=== PATIENT | male | born 1935 | race Caucasian/White ===

== ENCOUNTER 2017-09-17 14:34 | Emergency (ER) | payer OTHER ==
[~2017-09-17] VITALS: Ht 177.8 cm; Wt 73.5 kg
[2017-09-17 15:20] LABS: ABSOLUTE BASOPHIL COUNT 0 /CUMM (0.0-0.2); ABSOLUTE EOSINOPHIL COUNT 0.1 /CUMM (0.0-0.7); ABSOLUTE LYMPH COUNT 1.6 /CUMM (1.2-3.4); ABSOLUTE MONOCYTE COUNT 0.6 /CUMM (0.10-0.60); BASOPHIL % 0.2 % (0.0-2.0); GRANULOCYTE % 63.7 % (42.2-75.2); HEMATOCRIT 46.4 % (42-52); MEAN CORPUSCULAR HGB 31.6 PG (27.0-31.0); MEAN CORPUSCULAR HGB CONC 34.5 G/DL (33.0-37.0); MEAN CORPUSCULAR VOLUME 91.6 FL (80.0-94.0); MEAN PLATELET VOLUME 9.3 FL (7.4-10.4); PLATELET COUNT 133 /CUMM (130-400); RBC DISTRIBUTION WIDTH 14.6 % (11.5-14.5); RED BLOOD CELL CT 5.06 /CUMM (4.70-6.10); WHITE BLOOD CELL COUNT 6.3 /CUMM (4.8-10.8)
--- NOTE | 2017-09-17 15:34 | CT SCAN REPORT ---
EXAMINATION: CT ABDOMEN AND PELVIS WITHOUT CONTRAST CLINICAL INFORMATION: Left lower back pain. Abdominal pain. COMPARISON: None TECHNIQUE: Multidetector volumetric imaging was performed from the superior aspect of the liver through the pubic symphysis. Sagittal and coronal reformatted images were obtained on the technologist's workstation. DLP: 327.38 mGy-cm FINDINGS: LUNG BASES: There is no acute infiltrate. There are multiple small calcified granuloma at the right lung base. There is linear scarring at the middle lobe and lingula. LIVER, GALLBLADDER, AND BILIARY TREE: There is micronodularity of the surface of liver consistent with underlying cirrhosis. The right lobe of liver is small measuring 12 cm superior inferior. There is no focal liver lesion. There is no intrahepatic bile duct dilatation. The gallbladder is unremarkable with no evidence of radiopaque gallstones, gallbladder wall thickening, or obvious pericholecystic inflammatory changes. PANCREAS: Unremarkable. SPLEEN: Unremarkable. The spleen measures 10 cm AP. ADRENAL GLANDS: Unremarkable. BLADDER/KIDNEYS AND URETERS: There is mild dilatation of the calyces and left renal pelvis to the ureter pelvic junction. There is no hydroureter however. There is a 2 mm stone at the left bladder trigone which is passed or is passing through the left UVJ. Axial image 547 (3). There is no additional stone in the left kidney. The right kidney and ureter are normal with no calculus or hydronephrosis. GASTROINTESTINAL TRACT: Moderate volume of stool throughout colon. There is no acute abnormality of the bowel. No bowel obstruction. No bowel wall thickening or edema. There are a few scattered diverticula of the colon, but no diverticulitis. The appendix is normal. The small bowel loops are normal. There is a small hiatal hernia. MESENTERY: No ascites. No inflammation. No free air. ABDOMINAL WALL: No significant hernia is appreciated. LYMPH NODES: Normal. VASCULAR: There is atherosclerotic vascular calcifications of the abdominal and pelvic vasculature. There is heavy vascular calcification of the SMA and the splenic artery. There is calcification at the origin of the right and left renal artery. There are scattered vascular calcifications of the aorta and iliac arteries. PELVIC VISCERA: Prostate measures 5 cm transverse. OSSEOUS STRUCTURES: Degenerative spondylosis with multilevel disc height narrowing, vertebral endplate spurs, vacuum disc phenomenon and facet joint arthrosis. IMPRESSION: 1. Moderate hydronephrosis of the left kidney. There is a 2 mm stone at the left bladder trigone which is passing or has passed through the left UVJ. 2. Micronodular contour of liver consistent with cirrhosis.
--- NOTE | 2017-09-17 16:23 | ED GI/GU/ABDOMINAL COMPLAINT ---
History of Present Illness General Chief Complaint: Low Back Pain/Injury Stated Complaint: LOWER BACK PAIN Source: patient, family Exam Limitations: no limitations Vital Signs & Intake/Output Vital Signs & Intake/Output Vital Signs Date Time Temp Pulse Resp B/P B/P Pulse O2 O2 Flow FiO2 Mean Ox Delivery Rate 09/17 1643 96.8 696 18 145/96 696 Room Air 09/17 1641 96 Room Air Room Air 09/17 1443 97.4 64 16 196/83 97 Room Air Allergies Coded Allergies: aspirin (Intermediate, RASH 09/17/17) Reconcile Medications Ondansetron (Zofran Odt) 4 MG TAB.RAPDIS 1 TAB SL TID PRN NAUSEA Triage Note: 82M WITH LEFT FLANK PAIN, DENIES RADIATION. WORSE WITH MOVMENT. STARTED AT MIDNIGHT AND IMPROVED WITH ALEVE AT 4AM. DENIES HEMATURIA OR BLOOD TO STOOL. -N/V, +GAS PAINS TO ABD Triage Nurses Notes Reviewed? yes Onset: Abrupt Duration: day(s): (1), better, gone now Timing: single episode today Quality/Severity: cramping Severity Numbers: 7 Location: left lower quadrant Radiation: back, groin Activities at Onset: none Prior Abdominal Problems: none Past Sexual History: Unobtainable at this time No Modifying Factors: none Modifying Factors: Worsens With: palpation. HPI: 82-year-old male history of cirrhosis presents for evaluation of left flank pain radiating into the left groin and left lower quadrant. This started abruptly around midnight last night. He states that he took some Aleve which did help. The pain did return several hours later and then has gone away again. There are no other associated symptoms. There is no trauma or triggering event no nausea vomiting hematuria chest pain or shortness of breath. No fevers. Currently he is completely asymptomatic. (Bertrand Kyle) Past History Travel History Traveled to [place] past 21 day No Medical History Any Pertinent Medical History? see below for history Cardiovascular: hypertension Surgical History Surgical History: non-contributory Psychosocial History What is your primary language Lao Tobacco Use: Never used Family History Hx Contributory? No (Bertrand Kyle) Review of Systems Review of Systems Constitutional: Reports: no symptoms. EENTM: Reports: no symptoms. Respiratory: Reports: no symptoms. Cardiovascular: Reports: no symptoms. GI: Reports: abdominal pain. Genitourinary: Reports: no symptoms. Musculoskeletal: Reports: see HPI, back pain. Skin: Reports: no symptoms. Neurological/Psychological: Reports: no symptoms. Hematologic/Endocrine: Reports: no symptoms. Immunologic/Allergic: Reports: no symptoms. All Other Systems: Reviewed and Negative (Bertrand Kyle) Physical Exam Physical Exam General Appearance: well developed/nourished, no apparent distress, alert, awake Head: atraumatic, normal appearance Eyes: Bilateral: normal appearance, PERRL, EOMI. Ears, Nose, Throat, Mouth: hearing grossly normal, moist mucous membrane Neck: normal inspection, supple, full range of motion Respiratory: normal breath sounds, chest non-tender, no respiratory distress, lungs clear Cardiovascular: regular rate/rhythm, normal peripheral pulses Peripheral Pulses: 2+ radial (R), 2+ radial (L) Gastrointestinal: normal bowel sounds, soft, non-tender, no organomegaly Back: normal inspection, normal range of motion, no vertebral tenderness Extremities: normal range of motion Neurologic/Psych: no motor/sensory deficits, awake, alert, oriented x 3, normal gait, normal mood/affect Skin: intact, normal color, warm/dry Core Measures ACS in differential dx? No Sepsis Present: No Sepsis Focused Exam Completed? No (Bertrand Kyle) Progress Differential Diagnosis: AAA, appendicitis, biliary colic, bowel obstruction, cholecystitis, diverticulitis, gastritis, hernia, ischemic bowel, inflamm bowel dis, prostatitis, peptic ulcer, pyelonephritis, SBO, ureterolithiasis, urinary retention, urethritis, UTI/pyelo Plan of Care: Orders Procedure Date/time Status URINALYSIS 09/17 144 Complete LIPASE 09/17 1442 Complete LACTIC ACID 09/17 144 Complete COMPREHENSIVE METABOLIC PANEL 09/17 144 Complete CBC WITHOUT DIFFERENTIAL 09/17 144 Complete Laboratory Tests 09/17/17 1742: Lactic Acid Cancelled 09/17/17 1520: Urine Color YEL, Urine Clarity CLEAR, Urine pH 6.0, Ur Specific [place] 1.015, Urine Protein NEG, Urine Ketones NEG, Urine Nitrite NEG, Urine Bilirubin NEG, Urine Urobilinogen 2.0 H, Ur Leukocyte Esterase NEG, Ur Microscopic SEDIMENT EXAMINED, Urine RBC 5-10 H, Urine WBC RARE, Ur Epithelial Cells RARE, Urine Hemoglobin SMALL H, Urine Glucose NEG 09/17/17 1508: Anion Gap 7, Estimated GFR > 60, BUN/Creatinine Ratio 15.6, Glucose 98, Lactic Acid 1.1, Calcium 9.1, Total Bilirubin 1.3, AST 103 H, ALT 163 H, Alkaline Phosphatase 507 H, Total Protein 8.4 H, Albumin 4.2, Globulin 4.2, Albumin/ Globulin Ratio 1.0 L, Lipase 101, CBC w Diff NO MAN DIFF REQ, RBC 5.06, MCV 91.6, MCH 31.6 H, MCHC 34.5, RDW 14.6 H, MPV 9.3, Gran % 63.7, Lymphocytes % 24.8, Monocytes % 9.3, Eosinophils % 2.0, Basophils % 0.2, Absolute Granulocytes 4.0, Absolute Lymphocytes 1.6, Absolute Monocytes 0.6, Absolute Eosinophils 0.1, Absolute Basophils 0 Patient is here for evaluation of left flank pain that started last night abruptly. The pain had been coming and going throughout the night. Currently he is completely asymptomatic and feels well. His vitals are stable. Blood work is remarkable for elevated liver function tests patient has a known history of cirrhosis. CT scan impression is as follows: Moderate hydronephrosis of the left kidney. There is a 2 mm stone at the left bladder trigone which is passing or has passed through the left UVJ. This finding correlates with the clinical picture. Urine is not showing any signs of infection. CT scan also shows evidence of cirrhosis which again is known to the patient. Reviewed all results of today's visit. Advised him to rest drink plenty of fluids Aleve as needed for pain. Make a follow-up appointment with the primary care doctor and provided urologist. Discussed return precautions case discussed with Dr. Sewell HE agrees. Diagnostic Imaging: Viewed by Me: CT Scan. Discussed w/RAD: CT Scan. Radiology Impression: PATIENT: JEREMIAH PINEDA PRESENT AGE: 82 PATIENT ACCOUNT NO: [id number] : 33 LOCATION: [facility] ORDERING PHYSICIAN: Rip CHAUDHARI SERVICE DATE: 09/17/17 EXAM TYPE: CAT - CT ABD & PELVIS W/O IV CONTRAS EXAMINATION: CT ABDOMEN AND PELVIS WITHOUT CONTRAST CLINICAL INFORMATION: Left lower back pain. Abdominal pain. COMPARISON: None TECHNIQUE: Multidetector volumetric imaging was performed from the superior aspect of the liver through the pubic symphysis. Sagittal and coronal reformatted images were obtained on the technologist's workstation. DLP: 327.38 mGy-cm FINDINGS: LUNG BASES: There is no acute infiltrate. There are multiple small calcified granuloma at the right lung base. There is linear scarring at the middle lobe and lingula. LIVER, GALLBLADDER, AND BILIARY TREE: There is micronodularity of the surface of liver consistent with underlying cirrhosis. The right lobe of liver is small measuring 12 cm superior inferior. There is no focal liver lesion. There is no intrahepatic bile duct dilatation. The gallbladder is unremarkable with no evidence of radiopaque gallstones, gallbladder wall thickening, or obvious pericholecystic inflammatory changes. PANCREAS: Unremarkable. SPLEEN: Unremarkable. The spleen measures 10 cm AP. ADRENAL GLANDS: Unremarkable. BLADDER/KIDNEYS AND URETERS: There is mild dilatation of the calyces and left renal pelvis to the ureter pelvic junction. There is no hydroureter however. There is a 2 mm stone at the left bladder trigone which is passed or is passing through the left UVJ. Axial image 547 (3). There is no additional stone in the left kidney. The right kidney and ureter are normal with no calculus or hydronephrosis. GASTROINTESTINAL TRACT: Moderate volume of stool throughout colon. There is no acute abnormality of the bowel. No bowel obstruction. No bowel wall thickening or edema. There are a few scattered diverticula of the colon, but no diverticulitis. The appendix is normal. The small bowel loops are normal. There is a small hiatal hernia. MESENTERY: No ascites. No inflammation. No free air. ABDOMINAL WALL: No significant hernia is appreciated. LYMPH NODES: Normal. VASCULAR: There is atherosclerotic vascular calcifications of the abdominal and pelvic vasculature. There is heavy vascular calcification of the SMA and the splenic artery. There is calcification at the origin of the right and left renal artery. There are scattered vascular calcifications of the aorta and iliac arteries. PELVIC VISCERA: Prostate measures 5 cm transverse. OSSEOUS STRUCTURES: Degenerative spondylosis with multilevel disc height narrowing, vertebral endplate spurs, vacuum disc phenomenon and facet joint arthrosis. IMPRESSION: 1. Moderate hydronephrosis of the left kidney. There is a 2 mm stone at the left bladder trigone which is passing or has passed through the left UVJ. 2. Micronodular contour of liver consistent with cirrhosis. DICTATED BY: Paco Price MD DATE/TIME DICTATED:09/17 GLASS SETTER:NANCI DATE/TIME TRANSCRIBED:09/17/171513 CONFIDENTIAL, DO NOT COPY WITHOUT APPROPRIATE AUTHORIZATION. <Electronically signed in Other Vendor System> SIGNED BY: Paco Price MD 09/17/171533 Initial ED EKG: none (Bertrand Kyle) Departure Departure Disposition: HOME OR SELF CARE Condition: Stable Clinical Impression Primary Impression: Nephrolithiasis Referrals: Karen IRENE,Eusebio Fuentes (PCP/Family) Alex Way MD Additional Instructions: Rest and drink plenty of fluids. Aleve as needed for pain Zofran for nausea. Urinate through the strainer. Make a follow-up with your primary care doctor and Dr. Way as soon as possible. If you have worsening pain nausea vomiting unable to urinate fever or any other concerns return as soon as possible.. He should also follow-up with a street car mechanic to evaluate the liver cirrhosis. Please note that there might be incidental findings in your evaluation that are unrelated to the current emergency department visit. Please notify your primary care doctor about this emergency department visit in order to obtain and review all of the testing performed so that these incidental findings can be monitored as needed. If you had an x-ray performed, please understand that some fractures or other findings may not be seen on the initial set of x-rays. If your symptoms persist you might need a repeat set of x-rays to check for such a fracture. If you had a laceration evaluated, please understand that foreign bodies such as glass or wood may not be visible to the naked eye or on plain x-rays. If the wound becomes red, swollen, increasingly more painful or if there is any drainage from the wound, please have it reevaluated by a physician for the possibility of a retained foreign body. If you're unable to follow up as outlined in the discharge instructions please return to the emergency department. Thank you for choosing the [facility] Emergency Department for your care. It was a pleasure to serve you today. Departure Forms: Customer Survey General Discharge Information Prescriptions: Current Visit Scripts Ondansetron (Zofran Odt) 1 TAB SL TID PRN NAUSEA #15 TAB (Bertrand Kyle) PA/MOVIE SHOT CAMERAMAN Co-Sign Statement Statement: ED Attending supervision documentation- [X] I saw and evaluated the patient. I have also reviewed all the pertinent lab results and diagnostic results. I agree with the findings and the plan of care as documented in the PA's/MOVIE SHOT CAMERAMAN's documentation. [] I have reviewed the ED Record and agree with the PA's/MOVIE SHOT CAMERAMAN's documentation. [] Additions or exceptions (if any) to the PAs/MOVIE SHOT CAMERAMAN's note and plan are summarized below: [] (Tom Sewell DO)
[2017-09-17] MEDS ORDERED: ZOFRAN ODT4 M1 SL (16:31)
[2017-09-17 16:43] VITALS: BP 145/96
== END 2017-09-17 16:43 ==
LOC: ERH 14:34
PROVIDERS: Physician Assistant Medical
DX: N20.0 Calculus of kidney (principal); R10.9 Unspecified abdominal pain; I10 Essential (primary) hypertension
CPT/HCPCS: 74176; 81001